=== PATIENT | male | born 2000 | race Caucasian/White ===

== ENCOUNTER 2018-11-07 13:15 | Emergency (ER) | payer OTHER ==
[~2018-11-07] VITALS: Ht 180.3 cm; Wt 72.6 kg
[2018-11-07 13:23] VITALS: BP 128/72
--- NOTE | 2018-11-07 13:25 | NUR ---
PT TRIAGED AND SENT TO ER [facility].
--- NOTE | 2018-11-07 14:33 | NUR ---
PT BIB SELF C/O 9/10 L LOWER BACK PULLING PAIN S/P PICKING UP LITTLE BROTHER YESTERDAY. NO DEFORMITY OR DISCOLORATION. STATES THE PAIN WAS SO BAD WHEN IT FIRST HAPPENED THAT HE COULD NOT WALK. AMB TO BED WITH STEADY GAIT. NO OTHER SYMPTOMS MADE KNOWN AT THIS TIME. PATIENT POSITIONED FOR COMFORT. BED IN LOW LOCKED POSITION.
[2018-11-07] MEDS ORDERED: KETOROLAC 60 MG/2 ML VIAL IM ONE (15:50)
[2018-11-07 16:15] VITALS: BP 128/72
--- NOTE | 2018-11-07 16:15 | NUR ---
Patient discharged with v/s stable. Written and verbal after care instructions given and explained. Patient alert, oriented and verbalized understanding of instructions. Ambulatory with steady gait. All questions addressed prior to discharge. ID band removed. Patient advised to follow up with PMD. Rx of TRAMADOL, MOTRIN given. Patient educated on indication of medication including possible reaction and side effects. Opportunity to ask questions provided and answered.
== END 2018-11-07 16:15 | disposition home or self-care (01) ==
LOC: MED 13:15
DX: S39.012A Strain of muscle, fascia and tendon of lower back, initial encounter (principal); X50.9XXA Other and unspecified overexertion or strenuous movements or postures, initial encounter; Y93.89 Activity, other specified; Y92.89 Other specified places as the place of occurrence of the external cause; Y99.8 Other external cause status
CPT/HCPCS: 96372; 99283; J1885